=== PATIENT | female | born 1990 | race American Indian/Alaskan Native ===

== ENCOUNTER 2019-02-18 12:23 | Emergency (ER) | payer MEDICAID ==
[2019-02-18 12:33] VITALS: BP 119/64
--- NOTE | 2019-02-18 12:36 | Emergency Department Report ---
Chief Complaint: Medical Clearance Stated Complaint: TEST Time Seen by Provider: 02/18/19 12:31 - HPI History of Present Illness: This is a 29 y.o. F. that presents to the ER for a test. LMP 01/12/2019. Patient states she haven't tried Denies vaginal discharge, urinary frequency, urgency, abdominal pain, or back pain. - Exam Vital Signs: Vital Signs 02/18/19 12:32 Temperature 98.3 F Pulse Rate 106 H Respiratory 16 Rate Blood Pressure 119/64 [Left] O2 Sat by Pulse 97 Oximetry MSE screening note: Focused history and physical exam performed. Due to findings the following was ordered: ED Medical Decision Making - Medical Decision Making This is a 29-year-old female that presents to the ER requesting a test. Patient is stable and was examined by me. LMP 01/12/2019. She denies vaginal discharge, urinary frequency, urgency, dysuria, pelvic pain, or back pain. Patient was instructed this is non-emergent and to follow up with gynecology, PCP, or urgent care. At time of discharge, the patient does not seem toxic or ill in appearance. No acute signs of distress noted. Patient agrees to discharge treatment plan of care. No further questions noted by the patient. ED Disposition for MSE Clinical Impression: Feared complaint without diagnosis Disposition: DC-01 TO HOME OR SELFCARE Is pt being admited?: No Does the pt Need Aspirin: No Condition: Stable Additional Instructions: Follow up with gynecology, primary care doctor, or urgent care. I have provided a list of places to follow up with below. Referrals: [facility] [Outside] - 3-[address] [facility] [Outside] - 3-5 Days [facility] [Outside] - 3-5 Days [facility] [Provider Group] - 3-5 Days Forms: Work/School Release Form(ED) Time of Disposition: 12:35
== END 2019-02-18 13:05 | disposition home or self-care (01) ==
LOC: ED 12:23
DX: O26.891 Other specified pregnancy related conditions, first trimester (principal); Z71.1 Person with feared health complaint in whom no diagnosis is made; Z3A.01 Less than 8 weeks gestation of pregnancy
CPT/HCPCS: 99282

== ENCOUNTER 2019-10-22 20:25 | Outpatient (CLI) | payer MEDICAID ==
[2019-10-22 20:52] VITALS: BP 126/59
--- NOTE | 2019-10-22 23:15 | Ultrasound Report ---
ULTRASOUND BIOPHYSICAL PROFILE INDICATION / CLINICAL INFORMATION: r/o ROM, decreased movement. COMPARISON: None available. FINDINGS: BREATHING MOVEMENT = 2 GROSS BODY MOVEMENT = 2 TONE = 2 QUALITATIVE AMNIOTIC FLUID VOLUME = 2 TOTAL BIOPHYSICAL SCORE = 12/30 AMNIOTIC FLUID INDEX (cm) = 14 PRESENTATION: Cephalic. HEART RATE (beats per minute): 126 IMPRESSION: 1. biophysical profile = 12/30 Signer Name: Christian Oro MD Signed: 10/22/2019 11:11 PM Workstation Name: [email or web address]
== END 2019-10-22 22:35 | disposition home or self-care (01) ==
LOC: TRG 20:25 → APU 20:29 → TRG 22:35
PROVIDERS: ATTEND Obstetrics & Gynecology
DX: O36.8130 Decreased fetal movements, third trimester, not applicable or unspecified (principal); Z3A.40 40 weeks gestation of pregnancy
CPT/HCPCS: 59025; 76815; 76819

== ENCOUNTER 2019-10-27 08:51 | Inpatient (IN) | payer MEDICAID ==
[2019-10-27] MEDS ORDERED: TERBUTALINE 1 MG/1 ML INJ SUB-Q PRN (10:00)
[2019-10-27] MEDS ORDERED: PROMETHAZINE 25 MG TAB PO PRN (10:00)
[2019-10-27] MEDS ORDERED: ePHEDrine SULFATE 50 MG/1 ML INJ IV PRN (10:00)
[2019-10-27] MEDS ORDERED: NALOXONE 0.4 MG/1 ML INJ IV PRN (10:00)
[2019-10-27] MEDS ORDERED: LIDOCAINE (2%) 20 MG/1 ML VIAL 20 ML MDV INFILTRATI NR (10:00)
[2019-10-27] MEDS ORDERED: OXYTOCIN DRIP 30 UNITS/500 ML BAG IV SCH (10:00)
[2019-10-27] MEDS ORDERED: ONDANSETRON 4 MG/2 ML INJ IV PRN (10:00)
[2019-10-27] MEDS ORDERED: OXYTOCIN 20 UNIT/1000ML DRIP 20 UNITS/1,000 ML BAG IV SCH (10:00)
[2019-10-27] MEDS ORDERED: BUTORPHANOL 2 MG/1 ML INJ IV PRN ×2 (10:00)
[2019-10-27] MEDS ORDERED: fentaNYL 100 MCG/2 ML INJ IV PRN (10:00)
[2019-10-27] MEDS ORDERED: TERBUTALINE 1 MG/1 ML INJ IVP PRN (10:00)
[2019-10-27 10:29] LABS: Hematocrit 34.5 % (30.3-42.9); Hemoglobin 11.8 gm/dl (10.1-14.3); Mean Corpuscular HGB Conc 34 % (30-34); Mean Corpuscular Volume 91 fl (79-97); Platelet Count 199 K/mm3 (140-440); Red Blood Count 3.79 M/mm3 (3.65-5.03); Red Cell Distribution Width 13.5 % (13.2-15.2)
[2019-10-27] MEDS ORDERED: MINERAL OIL 30 ML ORAL LIQD PO PRN (10:30)
[2019-10-27] MEDS: LACTATED RINGERS 1,000 ML IV SCH ×2 (10:54→17:22)
--- NOTE | 2019-10-27 12:51 | History and Physical Report ---
History of Present Illness Date of examination: 10/27/19 Date of admission: 10/27/19 08:52 Chief complaint: Here for induction History of present illness: Pt is a 29 yo at 41w0d EGA who presents for induction secondary to post- dates gestation. She reports positive movement and denies LOF, vaginal bleeding, or painful contractions. She has received care with [facility] since 10 weeks EGA. Her has been complicated by Tric homonas with negative test of cure, and glucose intolerance with normal 3hr GTT. She is GBS negative. Past History Past Medical History: no pertinent history Past Surgical History: D&C Family/Genetic History: cancer (PGM breast cancer, 30's) Social history: ( is in the , stationed in [place]) - Obstetrical History Expected Date of Delivery: 10/20/19 Actual Gestation: 41 Week(s) 0 Day(s) : 4 Para: 1 Hx # Term Pregnancies: 1 Spontaneous Abortions: 1 Induced : 1 Number of Living Children: 1 Medications and Allergies Allergies Allergy/AdvReac Type Severity Reaction Status Date / Time No Known Allergies Allergy Unverified 04/18/18 11:52 Home Medications Medication Instructions Recorded Confirmed Last Taken Type Vitamin 1 tab PO DAILY 10/27/19 10/27/19 10/27/19 History Active Meds: Active Medications Butorphanol Tartrate (Stadol) 1 mg IV Q2H PRN PRN Reason: Pain, Moderate(4-6) LABOR PAIN Butorphanol Tartrate (Stadol) 2 mg IV Q2H PRN PRN Reason: Pain , Severe (7-10) Ephedrine Sulfate (Ephedrine Sulfate) 10 mg IV Q2M PRN PRN Reason: Hypotension Fentanyl (Sublimaze) 100 mcg IV Q2H PRN PRN Reason: Pain,Severe (7-10) LABOR PAIN Oxytocin/Sodium Chloride (Pitocin/Ns 20 Unit/1000ml Drip) 20 units in 1,000 mls @ 125 mls/hr IV DIRECT MARY JANE Oxytocin/Sodium Chloride (Pitocin/Ns 30 Unit/500ml) 30 units in 500 mls @ 2 mls/hr IV TITR MARY JANE; Protocol Last Titration: 10/27/19 12:00 Dose: 6 ml/hr, 6 mls/hr Documented by: Lactated Ringer's (Lactated Ringers) 1,000 mls @ 125 mls/hr IV DIRECT MARY JANE Last Admin: 10/27/19 10:54 Dose: 125 mls/hr Documented by: Lidocaine (Xylocaine 2%) 20 ml INFILTRATI ONCE NR Stop: 10/28/19 09:59 Mineral Oil (Mineral Oil) 30 ml PO QHS PRN PRN Reason: Constipation Naloxone HCl (Naloxone) 0.1 mg IV Q2MIN PRN PRN Reason: Res Rate </= 8 or 02 SAT < 92% Ondansetron HCl (Zofran) 4 mg IV Q8H PRN PRN Reason: Nausea And Vomiting Promethazine HCl (Phenergan) 25 mg PO Q6H PRN PRN Reason: Nausea And Vomiting Terbutaline Sulfate (Brethine) 0.25 mg SUB-Q ONCE PRN PRN Reason: Hyperstimulation/Hypertonicity Terbutaline Sulfate (Brethine) 0.25 mg IVP ONCE PRN PRN Reason: Hyperstimulation/Hypertonicity Review of Systems All systems: negative Genitourinary: no vaginal bleeding, no leakage of fluid - Vital Signs Vital signs: Vital Signs Pulse BP 88 110/63 10/27/19 09:28 10/27/19 09:28 Temp Pulse Resp BP Pulse Ox 98.3 F 88 109/55 99 10/27/19 09:38 10/27/19 12:42 10/27/19 12:42 10/27/19 12:42 - Physical Exam Lungs: Positive: Normal air movement Abdomen: Positive: soft Uterus: Positive: enlarged (gravid, EFW 7lb) - Obstetrical FHR: category 1 Uterine Contraction Monitor Mode: External Cervical Dilatation: 2.5 Cervical Effacement Percentage: 50 station: -3 Results Result Diagrams: 10/27/19 10:13 Abnormal lab results 10/27/19 Range/Units 10:13 WBC 15.3 H (4.5-11.0) K/mm3 All other labs normal. Assessment and Plan A: 29 yo at 41w0d EGA Post-dates gestation Trichomonas this with negative test of cure Glucose intolerance with normal 3hr GTT P: Low dose Pitocin AROM clear fluid at 1245 Pain relief as requested Anticipate
[2019-10-27] MEDS ORDERED: DEXMEDETOMIDINE 200 MCG/2 ML VIAL IV ONE (16:06)
--- NOTE | 2019-10-27 16:53 | Anesthesia Consultation ---
Anesthesia Consult and Med Hx Date of service: 10/27/19 - Airway Anesthetic Teeth Evaluation: Good ROM Head & Neck: Adequate Mental/Hyoid Distance: Adequate Mallampati Class: Class II Intubation Access Assessment: Good - Pulmonary Exam CTA: Yes - Cardiac Exam Cardiac Exam: RRR - Pre-Operative Health Status ASA Pre-Surgery Classification: ASA2, Emergency Proposed Anesthetic Plan: Epidural - Pulmonary Hx Asthma: No - Cardiovascular System Hx Hypertension: No - Central Nervous System Hx Seizures: No Hx Psychiatric Problems: No - Endocrine Hx Renal Disease: No Hx Hypothyroidism: No Hx Hyperthyroidism: No - Hematic Hx Anemia: No Hx Sickle Cell Disease: No - Other Systems Hx Alcohol Use: No
--- NOTE | 2019-10-27 16:54 | Progress Note ---
Labor Epidural - Labor Epidural Start Time: 16:31 Stop Time: 16:35 Performed by:: SHARON SOLO Procedure: Patient is requesting a laboring epidural for laboring pain. Patient IDed, H&P reviewed, all questions and concerns were answered, and consent was signed. Timeout was performed at bedside. Patient in sitting position. Sterile prep and drape was performed. 3 ml of 1% lidocaine skin wheal at L 3- L 4. 18-gauge Touhy epidural needle was advanced to loss of resistance with air technique. Negative CSF negative blood. Epidural catheter advanced to 15 centimeters. - Aspiration - test dose. Sterile dressing applied. Patient tolerated procedure.
[2019-10-27] MEDS ORDERED: fentaNYL-BUPIV 2 MCG/ML-0.125% 200 MCG/100 ML BAG EPIDURAL SCH (17:00)
--- NOTE | 2019-10-27 21:19 | Progress Note ---
Assessment and Plan A: 29 yo at 41w0d EGA Post-dates gestation Membranes ruptured x8.5 hours GBS negative P: Continue Pitocin titration Positional changes and peanut ball for descent Continue to monitor for s/sx infection Anticipate Subjective - Subjective Date of service: 10/27/19 Principal diagnosis: IOL for post-dates gestation Interval history: Pt's membranes have been ruptured 8.5 hours. Feeling comfortable with epidural in place. Pt is a 29 yo at 41w0d EGA who presents for induction secondary to post- dates gestation. She reports positive movement and denies LOF, vaginal bleeding, or painful contractions. She has received care with [facility] since 10 weeks EGA. Her has been complicated by Trichomonas with negative test of cure, and glucose intolerance with normal 3hr GTT. She is GBS negative. Patient reports: no new complaints Objective - Vital Signs Vital Signs: Vital Signs - 12hr 10/27/19 10/27/19 10/27/19 09:28 09:38 10:48 Temperature 98.3 F Pulse Rate 88 94 H Blood Pressure 110/63 O2 Sat by Pulse 97 Oximetry 10/27/19 10/27/19 10/27/19 10:53 10:59 11:03 Temperature Pulse Rate 92 H 89 90 Blood Pressure O2 Sat by Pulse 97 97 97 Oximetry 10/27/19 10/27/19 10/27/19 11:09 11:13 11:19 Temperature Pulse Rate 96 H 90 99 H Blood Pressure O2 Sat by Pulse 97 97 97 Oximetry 10/27/19 10/27/19 10/27/19 11:23 11:29 11:33 Temperature Pulse Rate 87 87 89 Blood Pressure O2 Sat by Pulse 96 97 98 Oximetry 10/27/19 10/27/19 10/27/19 11:39 11:44 11:48 Temperature Pulse Rate 98 H 92 H 96 H Blood Pressure O2 Sat by Pulse 97 97 96 Oximetry 10/27/19 10/27/19 10/27/19 11:53 11:58 12:03 Temperature Pulse Rate 89 84 103 H Blood Pressure O2 Sat by Pulse 96 96 98 Oximetry 10/27/19 10/27/19 10/27/19 12:09 12:14 12:18 Temperature Pulse Rate 88 87 109 H Blood Pressure O2 Sat by Pulse 96 97 97 Oximetry 10/27/19 10/27/19 10/27/19 12:23 12:28 12:33 Temperature Pulse Rate 86 86 100 H Blood Pressure O2 Sat by Pulse 96 96 97 Oximetry 10/27/19 10/27/19 10/27/19 12:42 12:46 12:51 Temperature Pulse Rate 88 86 93 H Blood Pressure 109/55 O2 Sat by Pulse 99 98 98 Oximetry 10/27/19 10/27/19 10/27/19 12:56 13:01 13:06 Temperature Pulse Rate 86 83 91 H Blood Pressure O2 Sat by Pulse 98 97 97 Oximetry 10/27/19 10/27/19 10/27/19 13:11 13:16 13:21 Temperature Pulse Rate 92 H 86 86 Blood Pressure O2 Sat by Pulse 97 98 97 Oximetry 10/27/19 10/27/19 10/27/19 13:26 13:31 13:36 Temperature Pulse Rate 89 88 87 Blood Pressure O2 Sat by Pulse 98 97 96 Oximetry 10/27/19 10/27/19 10/27/19 13:41 13:42 13:46 Temperature Pulse Rate 85 87 91 H Blood Pressure 133/63 O2 Sat by Pulse 97 97 Oximetry 10/27/19 10/27/19 10/27/19 13:53 13:58 14:03 Temperature Pulse Rate 84 87 87 Blood Pressure 125/60 O2 Sat by Pulse 98 97 94 Oximetry 10/27/19 10/27/19 10/27/19 14:08 14:13 14:14 Temperature Pulse Rate 76 74 79 Blood Pressure O2 Sat by Pulse 94 94 94 Oximetry 10/27/19 10/27/19 10/27/19 14:18 14:23 14:24 Temperature Pulse Rate 90 77 83 Blood Pressure O2 Sat by Pulse 96 95 94 Oximetry 10/27/19 10/27/19 10/27/19 14:28 14:31 14:33 Temperature Pulse Rate 73 74 79 Blood Pressure O2 Sat by Pulse 95 94 95 Oximetry 10/27/19 10/27/19 10/27/19 14:38 14:43 14:48 Temperature Pulse Rate 85 78 73 Blood Pressure O2 Sat by Pulse 96 97 97 Oximetry 10/27/19 10/27/19 10/27/19 14:53 14:58 15:00 Temperature 98.3 F Pulse Rate 80 84 Blood Pressure O2 Sat by Pulse 97 97 Oximetry 10/27/19 10/27/19 10/27/19 15:03 15:08 15:13 Temperature Pulse Rate 75 84 92 H Blood Pressure O2 Sat by Pulse 96 97 95 Oximetry 10/27/19 10/27/19 10/27/19 15:18 15:23 15:28 Temperature Pulse Rate 83 82 79 Blood Pressure O2 Sat by Pulse 97 97 98 Oximetry 10/27/19 10/27/19 10/27/19 15:33 15:36 15:38 Temperature Pulse Rate 82 78 79 Blood Pressure 115/56 O2 Sat by Pulse 97 98 Oximetry 10/27/19 10/27/19 10/27/19 15:43 15:48 15:53 Temperature Pulse Rate 72 74 75 Blood Pressure O2 Sat by Pulse 97 97 97 Oximetry 10/27/19 10/27/19 10/27/19 15:58 16:03 16:08 Temperature Pulse Rate 83 76 72 Blood Pressure O2 Sat by Pulse 97 97 97 Oximetry 10/27/19 10/27/19 10/27/19 16:13 16:18 16:23 Temperature Pulse Rate 79 80 92 H Blood Pressure O2 Sat by Pulse 99 99 97 Oximetry 10/27/19 10/27/19 10/27/19 16:28 16:30 16:31 Temperature Pulse Rate 83 88 74 Blood Pressure 117/72 O2 Sat by Pulse 100 84 Oximetry 10/27/19 10/27/19 10/27/19 16:33 16:34 16:37 Temperature Pulse Rate 75 73 75 Blood Pressure 135/80 139/77 O2 Sat by Pulse 100 Oximetry 10/27/19 10/27/19 10/27/19 16:38 16:40 16:43 Temperature Pulse Rate 89 80 78 Blood Pressure 128/70 117/58 O2 Sat by Pulse 100 100 Oximetry 10/27/19 10/27/19 10/27/19 16:46 16:48 16:49 Temperature Pulse Rate 83 82 80 Blood Pressure 110/59 93/54 O2 Sat by Pulse 98 Oximetry 10/27/19 10/27/19 10/27/19 16:52 16:53 16:55 Temperature Pulse Rate 82 79 74 Blood Pressure 84/56 102/59 O2 Sat by Pulse 97 Oximetry 10/27/19 10/27/19 10/27/19 16:58 17:01 17:03 Temperature Pulse Rate 75 80 78 Blood Pressure 106/60 104/57 O2 Sat by Pulse 97 97 Oximetry 10/27/19 10/27/19 10/27/19 17:04 17:07 17:08 Temperature Pulse Rate 75 76 83 Blood Pressure 105/56 102/58 O2 Sat by Pulse 98 Oximetry 10/27/19 10/27/19 10/27/19 17:10 17:13 17:16 Temperature Pulse Rate 75 75 74 Blood Pressure 112/58 107/56 113/61 O2 Sat by Pulse 98 Oximetry 10/27/19 10/27/19 10/27/19 17:18 17:19 17:22 Temperature Pulse Rate 76 73 76 Blood Pressure 115/64 112/60 O2 Sat by Pulse 98 Oximetry 10/27/19 10/27/19 10/27/19 17:23 17:25 17:28 Temperature Pulse Rate 73 72 76 Blood Pressure 116/59 110/57 O2 Sat by Pulse 96 97 Oximetry 10/27/19 10/27/19 10/27/19 17:31 17:33 17:34 Temperature Pulse Rate 78 83 74 Blood Pressure 116/59 113/58 O2 Sat by Pulse 97 Oximetry 10/27/19 10/27/19 10/27/19 17:37 17:38 17:40 Temperature Pulse Rate 74 76 77 Blood Pressure 109/55 110/56 O2 Sat by Pulse 96 Oximetry 10/27/19 10/27/19 10/27/19 17:43 17:46 17:48 Temperature Pulse Rate 76 75 76 Blood Pressure 108/59 106/60 O2 Sat by Pulse 96 96 Oximetry 10/27/19 10/27/19 10/27/19 17:49 17:52 17:53 Temperature Pulse Rate 71 76 77 Blood Pressure 108/58 105/58 O2 Sat by Pulse 97 Oximetry 10/27/19 10/27/19 10/27/19 17:55 17:58 18:00 Temperature 98.5 F Pulse Rate 73 74 Blood Pressure 106/58 109/63 O2 Sat by Pulse 97 Oximetry 10/27/19 10/27/19 10/27/19 18:01 18:03 18:04 Temperature Pulse Rate 74 77 81 Blood Pressure 109/60 108/59 O2 Sat by Pulse 96 Oximetry 10/27/19 10/27/1920 18:07 18:08 18:10 Temperature Pulse Rate 75 82 77 Blood Pressure 113/63 108/61 O2 Sat by Pulse 99 Oximetry 10/27/19 10/27/19 10/27/19 18:13 18:16 18:18 Temperature Pulse Rate 78 74 77 Blood Pressure 110/59 110/62 O2 Sat by Pulse 98 97 Oximetry 10/27/19 10/27/19 10/27/19 18:19 18:22 18:23 Temperature Pulse Rate 77 77 75 Blood Pressure 108/58 106/57 O2 Sat by Pulse 98 Oximetry 10/27/19 10/27/19 10/27/19 18:25 18:28 18:31 Temperature Pulse Rate 75 76 77 Blood Pressure 105/57 105/59 107/62 O2 Sat by Pulse 98 Oximetry 10/27/19 10/27/19 10/27/19 18:33 18:34 18:37 Temperature Pulse Rate 85 78 75 Blood Pressure 111/61 111/63 O2 Sat by Pulse 97 Oximetry 10/27/19 10/27/19 10/27/19 18:38 18:41 18:43 Temperature Pulse Rate 74 79 88 Blood Pressure 103/59 110/59 O2 Sat by Pulse 97 98 Oximetry 10/27/19 10/27/19 10/27/19 18:46 18:48 18:49 Temperature Pulse Rate 86 85 74 Blood Pressure 113/73 115/71 O2 Sat by Pulse 98 Oximetry 10/27/19 10/27/19 10/27/19 18:52 18:53 18:55 Temperature Pulse Rate 81 78 79 Blood Pressure 113/67 111/67 O2 Sat by Pulse 100 Oximetry 10/27/19 10/27/19 10/27/19 18:58 19:01 19:03 Temperature Pulse Rate 75 74 76 Blood Pressure 110/65 112/66 O2 Sat by Pulse 100 100 Oximetry 10/27/19 10/27/19 10/27/19 19:04 19:07 19:08 Temperature Pulse Rate 73 73 79 Blood Pressure 111/64 108/66 O2 Sat by Pulse 100 Oximetry 10/27/19 10/27/19 10/27/19 19:10 19:13 19:16 Temperature Pulse Rate 71 74 74 Blood Pressure 107/65 102/55 109/61 O2 Sat by Pulse 100 Oximetry 10/27/19 10/27/19 10/27/19 19:18 19:19 19:22 Temperature Pulse Rate 69 74 68 Blood Pressure 115/62 113/62 O2 Sat by Pulse 99 Oximetry 10/27/19 10/27/19 10/27/19 19:23 19:25 19:28 Temperature Pulse Rate 72 76 81 Blood Pressure 112/60 111/59 O2 Sat by Pulse 100 99 Oximetry 10/27/19 10/27/19 10/27/19 19:31 19:33 19:34 Temperature Pulse Rate 71 76 75 Blood Pressure 111/59 114/64 O2 Sat by Pulse 100 Oximetry 10/27/19 10/27/19 10/27/19 19:37 19:38 19:43 Temperature Pulse Rate 72 75 75 Blood Pressure 106/57 108/58 O2 Sat by Pulse 99 100 Oximetry 10/27/19 10/27/19 10/27/19 19:46 19:48 19:49 Temperature Pulse Rate 73 70 71 Blood Pressure 107/58 112/59 O2 Sat by Pulse 100 Oximetry 10/27/19 10/27/19 10/27/19 19:52 19:53 19:55 Temperature Pulse Rate 77 72 75 Blood Pressure 114/62 111/64 O2 Sat by Pulse 100 Oximetry 10/27/19 10/27/19 10/27/19 19:58 20:01 20:03 Temperature Pulse Rate 69 79 81 Blood Pressure 112/64 114/64 O2 Sat by Pulse 100 100 Oximetry 10/27/19 10/27/19 10/27/19 20:04 20:07 20:08 Temperature Pulse Rate 75 75 85 Blood Pressure 112/65 114/66 O2 Sat by Pulse 100 Oximetry 10/27/19 10/27/19 10/27/19 20:10 20:13 20:16 Temperature Pulse Rate 78 76 77 Blood Pressure 107/64 106/63 110/62 O2 Sat by Pulse 100 Oximetry 10/27/19 10/27/19 10/27/19 20:18 20:19 20:22 Temperature Pulse Rate 89 77 75 Blood Pressure 111/55 112/57 O2 Sat by Pulse 100 Oximetry 10/27/19 10/27/19 10/27/19 20:23 20:26 20:28 Temperature Pulse Rate 78 84 93 H Blood Pressure 126/64 114/57 O2 Sat by Pulse 100 100 Oximetry 10/27/19 10/27/19 10/27/19 20:31 20:33 20:34 Temperature Pulse Rate 78 84 96 H Blood Pressure 110/58 103/59 O2 Sat by Pulse 100 Oximetry 10/27/19 10/27/19 10/27/19 20:37 20:38 20:40 Temperature Pulse Rate 78 85 82 Blood Pressure 107/60 113/63 O2 Sat by Pulse 100 Oximetry 10/27/19 10/27/19 10/27/19 20:43 20:46 20:48 Temperature Pulse Rate 77 78 78 Blood Pressure 113/64 113/67 O2 Sat by Pulse 100 100 Oximetry 10/27/19 10/27/19 10/27/19 20:49 20:52 20:53 Temperature Pulse Rate 73 76 81 Blood Pressure 107/59 108/64 O2 Sat by Pulse 100 Oximetry 10/27/19 10/27/19 10/27/19 20:55 20:58 21:01 Temperature Pulse Rate 80 78 82 Blood Pressure 106/61 106/62 101/60 O2 Sat by Pulse 100 Oximetry 10/27/19 10/27/19 10/27/19 21:03 21:04 21:07 Temperature Pulse Rate 89 78 74 Blood Pressure 103/55 113/64 O2 Sat by Pulse 100 Oximetry 10/27/19 10/27/19 10/27/19 21:08 21:10 21:13 Temperature Pulse Rate 88 77 84 Blood Pressure 112/58 113/67 O2 Sat by Pulse 100 100 Oximetry - Exam Lungs: Normal air movement FHR: category 1 Uterine Contraction Monitor Mode: External Cervical Dilatation: 6 Cervical Effacement Percentage: 90 station: -2 Uterine Contraction Frequency (min): 2-3 Uterine Contraction Pattern: Regular Uterine Tone Measurement Phase: Contraction Uterine Contraction Intensity: Strong/Firm - Labs Labs: Abnormal Labs 10/27/19 10:13 WBC 15.3 H Laboratory Results - last 24 hr 10/27/19 10/27/19 10:13 10:13 WBC 15.3 H RBC 3.79 Hgb 11.8 Hct 34.5 MCV 91 MCH 31 MCHC 34 RDW 13.5 Plt Count 199 Blood Type B POSITIVE Antibody Screen Negative
[2019-10-28] MEDS ORDERED: MAGNESIUM HYDROXIDE (MOM) ORAL LIQD UDC PO PRN (02:16)
[2019-10-28] MEDS ORDERED: ACETAMINOPHEN 325 MG TAB PO PRN (02:16)
[2019-10-28] MEDS ORDERED: diphenhydrAMINE 25 MG CAP PO PRN (02:16)
[2019-10-28] MEDS ORDERED: PROMETHAZINE 25 MG TAB PO PRN (02:16)
[2019-10-28] MEDS ORDERED: WITCH HAZEL/ GLYCERIN PAD TP PRN (02:16)
[2019-10-28] MEDS ORDERED: ONDANSETRON 4 MG/2 ML INJ IV PRN (02:16)
[2019-10-28] MEDS ORDERED: PROMETHAZINE 25 MG RECT SUPP PR PRN (02:16)
[2019-10-28] MEDS ORDERED: LANOLIN/ZINC/DIMETHICONE (LANSINOH) 7 GM TP PRN (02:16)
--- NOTE | 2019-10-28 02:16 | Procedure Note ---
OB Delivery Note - Delivery Date of Delivery: 10/28/19 Surgeon: TEQUILA NÚÑEZ ([facility]) Estimated blood loss: 100cc - Vaginal Delivery presentation: vertex Delivery position: OA Intrapartum events: PROM->1hr before delivery Delivery induction: oxytocin Delivery augmentation: rupture of membranes Delivery monitor: external FHT, external uterine Route of delivery: Delivery placenta: spontaneous Delivery cord: 3 umbilical vessels Episiotomy: none Delivery laceration: other (bilateral periurethral abrasions) Anesthesia: epidural Delivery comments: Excellent maternal effort progressed to of viable female infant at 0151. Head delivered OA, restituted LOT. Shoulders followed easily with passive maternal leg extension and flexion. Infant to matneral abdomen, bulb suction of mouth and nares. Apgars 8/9. Delayed cord clamping. Cord clamped and cut by FOB, handed to peds RN. Placenta delivered spontaneously and intact, 3vc. Pitocin infusing, fundus firm. Bilateral periurethral abrasions noted, hemostatic, not repaired. EBL 100cc. - A at 1 minute: 8 at 5 minutes: 9 Gender: Female
[2019-10-28] MEDS: IBUPROFEN 600 MG TAB PO SCH ×4 (05:11→23:52)
--- NOTE | 2019-10-28 14:31 | Post Anesthesia Evaluation ---
- Post Anesthesia Evaluation Patient Participated: Yes Airway Patent: Yes Stable Respiratory Function: Yes Nausea/Vomiting: No Temp > 96.8F: Yes Pain Manageable: Yes Adequeate Hydration: Yes Anesthesia Complications: No Block Receding Appropriately: Yes Patient on Ventilator: No
[2019-10-28 15:10] LABS: Hematocrit 33.8 % (30.3-42.9); Hemoglobin 11.1 gm/dl (10.1-14.3)
[2019-10-29] MEDS: HYDROcodone/ACETAMINOPHEN 5-325 MG TAB PO PRN ×2 (02:19→09:20)
[2019-10-29] MEDS: IBUPROFEN 600 MG TAB PO SCH ×2 (05:45→09:19)
--- NOTE | 2019-10-29 12:40 | Progress Note ---
Assessment and Plan A: PPD#1 s/p at term, Obesity P: Discharge home today with follow up in 4 wk with Georgia Anglin - Subjective Date of service: 10/29/19 Principal diagnosis: s/p , obesity Interval history: Pt without complaints. Patient reports: appetite normal, voiding normally, pain well controlled, ambulating normally : doing well Objective - Vital Signs Latest vital signs: Vital Signs Temp Pulse Resp BP Pulse Ox 10/29/19 09:20 18 10/29/19 09:19 18 10/29/19 08:09 98.0 F 14 111/52 10/29/19 05:45 20 10/29/19 02:19 20 10/29/19 01:57 98.8 F 90 20 95/41 96 10/28/19 23:52 20 10/28/19 22:19 18 10/28/19 17:41 97.8 F 88 18 117/62 98 10/28/19 17:09 18 10/28/19 12:53 98.2 F 85 18 111/56 98 Intake and Output 10/28/19 10/29/19 10/29/19 22:59 06:59 14:59 Intake Total 480 360 480 Balance 480 360 480 Intake: Oral 360 480 Intake, Free Water 480 Other: Total, Intake Amount 360 240 Voiding Method Toilet # Voids Void 2 3 1 - Exam Breasts: Present: deferred Abdomen: Present: soft, distention (moderate ) Uterus: Present: fundal height at umbilicus Extremities: Present: edema (1+)
--- NOTE | 2019-10-29 12:44 | Discharge Summary ---
Providers - Providers Date of Admission: 10/27/19 08:52 Date of discharge: 10/29/19 Attending physician: BIMAL SHAH 10/28/19 02:17 Consult to Padder [CONS] Routine Reason For Exam: assistance with , SNS Primary care physician: BIMAL SHAH Hospitalization Reason for admission: induction of labor Delivery: Procedure details: Please see delivery note. Episiotomy: none Laceration: none Other procedures: none complications: none Discharge diagnosis: IUP at term delivered baby: female Hospital course: Pt was admitted for induction of labor and went on to a spontaneous vaginal delivery which she tolerated well. She requested discharge on PPD#1 and met discharge criteria. She will follow up in 4 wks with Tequila Núñez CNM. Condition at discharge: Stable Disposition: DC-01 TO HOME OR SELFCARE - Discharge Diagnoses (1) Term of female Status: Acute (2) Obesity Status: Acute Qualifiers: Obesity type: unspecified obesity type Obesity classification: adult class 1 (BMI 30 - 34.9) Serious obesity comorbidity presence: unspecified whether serious comorbidity present Body mass index: BMI 32.0-32.9 Qualified Code(s): E66.9 - Obesity, unspecified; Z68.32 - Body mass index (BMI) 32.0-32.9, adult Plan - Discharge Medications Prescriptions: Ibuprofen [Motrin] 600 mg PO Q6H PRN #60 tablet PRN Reason: Pain - Provider Discharge Summary Activity: routine, no sex for 6 weeks, no heavy lifting 4 weeks, no strenuous exercise Diet: routine Instructions: routine Additional instructions: [] Smoking cessation referral if applicable(refer to patient education folder for contact #) [] Refer to [facility] Booklet Call your doctor immediately for: * Fever > 100.5 * Heavy vaginal bleeding ( >1 pad per hour) * Severe persistent headache * Shortness of breath * Reddened, hot, painful area to leg or breast * Drainage or odor from incision. * Keep incision clean and dry at all times and follow doctor's instructions regarding bathing/showering - Follow up plan Follow up: TEQUILA NÚÑEZ CNM [Advanced Practice Nurse] - 11/28/19 (Please call to schedule your appt) Forms: [facility] Discharge Summary, Discharge Signature Page
[2019-10-29 13:19] VITALS: BP 118/68
== END 2019-10-29 14:00 | disposition home or self-care (01) | DRG 775 ==
LOC: TRG 08:51 → LD 08:52 → TRG 10:29 → OB 10-28 04:34
PROVIDERS: ADMIT Obstetrics & Gynecology; ATTEND Obstetrics & Gynecology
PROC: 10E0XZZ Delivery of Products of Conception, External Approach (ICD-10-PCS; principal; 2019-10-28)
PROC: 3E0R3BZ Introduction of Anesthetic Agent into Spinal Canal, Percutaneous Approach (ICD-10-PCS; 2019-10-28)
PROC: 00HU33Z Insertion of Infusion Device into Spinal Canal, Percutaneous Approach (ICD-10-PCS; 2019-10-28)
PROC: 0UQMXZZ Repair Vulva, External Approach (ICD-10-PCS; 2019-10-28)
PROC: 3E033VJ Introduction of Other Hormone into Peripheral Vein, Percutaneous Approach (ICD-10-PCS; 2019-10-28)
DX: O48.0 Post-term pregnancy (principal); Z3A.41 41 weeks gestation of pregnancy; Z37.0 Single live birth; O42.02 Full-term premature rupture of membranes, onset of labor within 24 hours of rupture; O70.0 First degree perineal laceration during delivery; O99.214 Obesity complicating childbirth; E66.9 Obesity, unspecified
CPT/HCPCS: 36415; 85014; 85018; 85027; 86850; 86900; 86901; G0378; J0595; J2590; J3490; J7120